=== PATIENT | female | born 1950 | race Caucasian/White ===

== ENCOUNTER 2016-06-22 10:03 | Inpatient (IN) | payer OTHER ==
[2016-06-22] VITALS (17 sets, daily range): BP systolic 117–169; BP diastolic 54–77; PULSE 42–63; RESP 10–25; Ht 154.9 cm; Wt 72.0 kg
[~2016-06-22] VITALS: Ht 154.9 cm; Wt 72.0 kg
[~2016-06-22 10:03] MED LIST: CEFAZOLIN 2 GM/50 ML (PMX) 50 ML IVPB SCH; ERGO500014 PO; GLIM4TAB PO; LOSARTAN PO; LOVA20TA PO; METF1000 PO; OMEP20CA16 PO; SUCCINYLCHOLINE CHLORIDE 100 MG/5 ML SYG IV ONE
[2016-06-22] MEDS ORDERED: GLIP5TAB13 PO (11:39)
[2016-06-22] MEDS ORDERED: FENTAnyl 50 MCG/ML VIAL ONE (15:30)
[2016-06-22] MEDS ORDERED: HYDROmorphONE (0.2 MG/ML) 10ML SYG IV PRN ×3 (16:00)
[2016-06-22] MEDS ORDERED: MEPERIDINE 25 MG INJ IV PRN (16:00)
[2016-06-22] MEDS ORDERED: FENTAnyl 50 MCG/ML VIAL IV PRN (16:00)
[2016-06-22] MEDS ORDERED: DIPHENHYDRAMINE 50 MG INJ IV PRN (16:00)
[2016-06-22] MEDS ORDERED: BUPIVACAINE 0.25% (MPF) 30 ML INJ ONE ×2 (16:48)
[2016-06-22] MEDS ORDERED: CEFAZOLIN 1 GM INJ ONE (16:52)
[2016-06-22] MEDS ORDERED: GLYCOPYRROLATE 0.4 MG INJ ONE (16:52)
[2016-06-22] MEDS ORDERED: LIDOCAINE 2% (SDV) 5 ML INJ ONE (16:52)
[2016-06-22] MEDS ORDERED: ROCURONIUM 50 MG INJ ONE (16:52)
[2016-06-22] MEDS ORDERED: PROPOFOL 20 ML ONE (16:52)
[2016-06-22] MEDS ORDERED: NEOSTIGMINE 3 MG/3 ML SYRINGE ONE (16:52)
[2016-06-22] MEDS ORDERED: ONDANSETRON 4 MG INJ ONE (17:10)
[2016-06-22] MEDS: FENTAnyl 50 MCG/ML VIAL IV PRN ×3 (17:20→19:59)
[2016-06-22 17:26] LABS: ADD SCAN DIFF NO
[2016-06-22 17:27] LABS: BASOPHIL # 0.1 10^3/ul (0.0-0.1); BASOPHILS % 0.7 % (0.0-2.0); EOSINOPHILS # 0.4 10^3/ul (0.0-0.5); EOSINOPHILS % 2.8 % (0.0-7.0); HEMATOCRIT 38.6 % (37.0-47.0); HEMOGLOBIN 12.9 g/dl (12.0-16.0); LYMPHOCYTES # 3.3 10^3/ul (0.8-2.9); LYMPHOCYTES % 24.3 % (15.0-51.0); MEAN CORPUSCULAR HEMOGLOBIN 29.9 pg (29.0-33.0); MEAN CORPUSCULAR HGB CONC 33.4 g/dl (32.0-37.0); MEAN CORPUSCULAR VOLUME 89.4 fl (82.0-101.0); MEAN PLATELET VOLUME 10.6 fl (7.4-10.4); MONOCYTE # 0.8 10^3/ul (0.3-0.9); MONOCYTES % 5.6 % (0.0-11.0); NEUTROPHILS % 66.2 % (39.0-77.0); PLATELET COUNT 263 10^3/UL (140-415); RED BLOOD COUNT 4.32 10^6/ul (4.20-5.40); RED CELL DISTRIBUTION WIDTH 12.3 % (11.5-14.5); WHITE BLOOD COUNT 13.7 10^3/ul (4.8-10.8)
[2016-06-22] MEDS ORDERED: morphine 2 MG INJ IV PRN (17:30)
[2016-06-22] MEDS ORDERED: HYDROCODONE/APAP (5/325) TAB PO PRN (17:30)
[2016-06-22] MEDS ORDERED: CEFAZOLIN 2 GM/50 ML (PMX) 50 ML IVPB SCH (17:30)
[2016-06-22] MEDS ORDERED: ONDANSETRON 4 MG INJ IV PRN (17:30)
[2016-06-22 17:42] LABS: ALBUMIN 3.5 g/dl (3.3-4.9)
[2016-06-22 17:44] LABS: BILIRUBIN,INDIRECT 0.3 mg/dl (0-1.1); BILIRUBIN,TOTAL 0.3 mg/dl (0.2-1.3)
[2016-06-22 17:45] LABS: ALBUMIN/GLOBULIN RATIO 0.94; TOTAL PROTEIN 7.2 g/dl (6.1-8.1)
[2016-06-22 17:58] LABS: CALCIUM 11.2 mg/dl (8.4-10.2); CREATININE 0.61 mg/dl (0.44-1.00)
[2016-06-22] MEDS: LACTATED RINGER'S 1,000 ML IV SCH (19:17)
[2016-06-22] MEDS: SOD CHLORIDE 0.9% 1,000 ML IV SCH ×2 (19:20→20:01)
--- NOTE | 2016-06-22 20:41 | OPR ---
DATE OF OPERATION: 06/22/2016 INDICATION: This is a 65-year-old female with multinodular thyroid goiter. She has problems and di fficulty with breathing and swallowing and requests surgical excision of her thyroid. Risks, altern atives, benefits, and personnel were discussed with the patient. The patient expresses understandin g and consents to the operation. PREOPERATIVE DIAGNOSIS: Multinodular thyroid goiter with pressure symptoms. POSTOPERATIVE DIAGNOSIS: Multinodular thyroid goiter with pressure symptoms. OPERATION: Total thyroidectomy. SURGEON: Bandar Washington MD SPECIMEN: Total thyroid with surgical markings of short single is right superior, single long is th e right inferior, double short is left superior, double long is left inferior. COMPLICATIONS: None. ANESTHESIA: General. PROCEDURE: The patient was taken to the OR and prepped and draped in the usual sterile fashion. Joaquin rgical timeout was performed. IV antibiotics were given. Collar incision was made with a 15 blade. Dissection cautery was carried down to the platysma. Superior and inferior subplatysmal flaps wer e created. Felix retractor was placed. Midline was split with cautery and tonsil. Attention was paid to the right thyroid. It appears somewhat soft. The left thyroid was addressed initially. T he middle thyroidal vein was ligated with the handheld LigaSure. The superior and inferior poles we re mobilized. Attention was paid to the recurrent laryngeal nerve and kept out of harm's way. The thyroid was medialized. The isthmus was mobilized with blunt dissection. Attention was then paid t o the right thyroid. The middle thyroidal vein was ligated with handheld LigaSure. The superior an d inferior poles were mobilized. Attention was paid to keep the recurrent laryngeal nerve out of ross rm's way. Handheld LigaSure was used to dissect carefully around the capsule of the thyroid. The t hyroid was removed en bloc. The short single suture was used to yenni the right superior lobe, singl e long was used to yenni the right inferior lobe, double short was used to yenni the left superior lob e, double long was used to yenni the left anterior lobe. The surgical site was irrigated with irriga tion and Valsalva at 40 cm, this held. There was no evidence of any bleeding. The irrigation was s uctioned out and dried. The midline strap muscles were reapproximated with interrupted 3-0 Vicryl. The platysma muscles were reapproximated with interrupted 3-0 Vicryl. Skin was closed with a runni ng 4-0 Monocryl. Local anesthesia was injected. Dry dressings were applied. Dictated By: BANDAR JOHNSTON/DEAN Conf#: [id number] DID#: [id number]
[2016-06-22] MEDS ORDERED: GLUCAGON 1 MG INJ IM PRN (23:30)
[2016-06-22] MEDS ORDERED: DEXTROSE 50% 50 ML SYRINGE IV PRN ×2 (23:30)
[2016-06-22] MEDS ORDERED: GLUCOSE GEL 15 GRAM TUBE PO PRN ×2 (23:30)
[2016-06-22] MEDS ORDERED: GLUCOSE GEL 15 GRAM TUBE BUCCAL PRN (23:30)
[2016-06-23] MEDS: CEFAZOLIN 2 GM/50 ML (PMX) 50 ML IVPB SCH ×3 (01:14→18:02)
[2016-06-23] MEDS ORDERED: ACCU-CHEK XX SCH (02:00)
[2016-06-23] MEDS: LACTATED RINGER'S 1,000 ML IV SCH ×3 (03:10→13:10)
[2016-06-23 05:36] LABS: ADD SCAN DIFF NO
[2016-06-23 05:55] LABS: ALBUMIN 3.3 g/dl (3.3-4.9); POTASSIUM 4.4 mmol/L (3.5-5.1)
[2016-06-23 05:57] LABS: CREATININE 0.61 mg/dl (0.44-1.00)
[2016-06-23 05:58] LABS: ALBUMIN/GLOBULIN RATIO 0.97; BILIRUBIN,INDIRECT 0.5 mg/dl (0-1.1); BILIRUBIN,TOTAL 0.5 mg/dl (0.2-1.3); CALCIUM 10.8 mg/dl (8.4-10.2); TOTAL PROTEIN 6.7 g/dl (6.1-8.1)
[2016-06-23 06:17] LABS: BASOPHIL # 0.1 10^3/ul (0.0-0.1); BASOPHILS % 0.7 % (0.0-2.0); EOSINOPHILS # 0.2 10^3/ul (0.0-0.5); EOSINOPHILS % 1.5 % (0.0-7.0); HEMATOCRIT 38.5 % (37.0-47.0); LYMPHOCYTES # 2.8 10^3/ul (0.8-2.9); LYMPHOCYTES % 22.8 % (15.0-51.0); MEAN CORPUSCULAR HEMOGLOBIN 30.2 pg (29.0-33.0); MEAN CORPUSCULAR HGB CONC 33.8 g/dl (32.0-37.0); MEAN CORPUSCULAR VOLUME 89.5 fl (82.0-101.0); MEAN PLATELET VOLUME 11.1 fl (7.4-10.4); MONOCYTE # 0.9 10^3/ul (0.3-0.9); MONOCYTES % 7.2 % (0.0-11.0); NEUTROPHIL # 8.2 10^3/ul (1.6-7.5); NEUTROPHILS % 67.5 % (39.0-77.0); PLATELET COUNT 263 10^3/UL (140-415); RED CELL DISTRIBUTION WIDTH 12.5 % (11.5-14.5); WHITE BLOOD COUNT 12.2 10^3/ul (4.8-10.8)
[2016-06-23] MEDS: INSULIN ASPART [NOVOLOG] 3 ML PEN SC SCH ×3 (08:15→17:47)
[2016-06-23 08:29] VITALS: BP 151/65; RESP 17
[2016-06-23] MEDS: SOD CHLORIDE 0.9% 1,000 ML IV SCH (08:40)
[2016-06-23] MEDS ORDERED: LOSARTAN 50 MG TAB PO SCH (11:30)
--- NOTE | 2016-06-23 11:41 | HP ---
DATE OF ADMISSION: 06/22/2016 HISTORY OF PRESENT ILLNESS: The patient is a 66-year-old female with hypertension, diabetes, hyperp arathyroidism. The patient presented with multinodular thyroid goiter and had difficulty with swall owing. The patient was evaluated by Dr. Washington in surgical consultation and was brought to the [facility] and underwent a total thyroidectomy for multilobular thyroid goiter with pressure symptoms. Posto peratively, the patient experienced significant pain and was admitted for further evaluation and man agement. PAST MEDICAL HISTORY: Positive for hypertension, diabetes, hyperparathyroidism. PAST SURGICAL HISTORY: Status post breast cyst removal in 1991, left meniscus repair in and C -section x2 many years ago. FAMILY HISTORY: Noncontributory. SOCIAL HISTORY: The patient lives at home with her family. The patient denies any tobacco use, den ies any alcohol use, denies any illicit drug use. ALLERGIES: NO KNOWN ALLERGIES. MEDICATIONS ON ADMISSION: 1. Tylenol p.r.n. for pain. 2. Glipizide 10 mg. 3. Cozaar 4. Lovastatin. 5. Metformin. 6. Naproxen. REVIEW OF SYSTEMS: A 12-point review of systems is negative unless what mentioned in the HPI. PHYSICAL EXAMINATION: GENERAL: Well-developed, well-nourished female, currently is awake, alert. VITAL SIGNS: Temperature is 98.3, pulse 62, blood pressure 151/65, respiratory rate 17, oxygen satu ration 97% on room air. HEENT: Head is atraumatic, normocephalic. Pupils equal, round, reactive to light and accommodation . Oral mucosa is pink and moist. NECK: Supple. There is a surgical incision at the base of the neck, it is intact. CHEST: Lungs clear bilaterally. There is no rhonchi, wheezes, rales noted. CARDIOVASCULAR: Normal S1, S2. No murmurs, gallops, clicks, rubs noted. ABDOMEN: Round, soft, nondistended, nontender. Bowel sounds present. There is no guarding or rebo und tenderness. EXTREMITIES: There is no edema, clubbing, cyanosis. Pulses equal bilaterally 2+. SKIN: There is no rash, petechiae noted. NEUROLOGIC: The patient is awake, alert and oriented x4, no focal deficits noted. Motor strength 5 /5 in all extremities. LABORATORY DATA: On admission, CBC: White blood cells 13.7, hemoglobin 12.9, hematocrit 38.6, plat elets 263. Chemistry: Sodium is 140, potassium 4.0, chloride 108, carbon dioxide 25, anion gap 11, BUN 17, creatinine 0.61, glucose 152, calcium 11.2. AST is 18, ALT 29, alkaline platelets 160. ASSESSMENT AND PLAN 1. Multinodular thyroid goiter with pressure symptoms, status post total thyroidectomy. We are goi ng to admit patient to medical/surgical floor. Continue postoperative antibiotics, Tylenol and Morp sangeeta p.r.n. for pain. Monitor calcium level. 2. Diabetes mellitus. Continue to monitor sugar with NovoLog sliding scale coverage. 3. Hypertension. We will resume patient's antihypertensive medication. 4. Dyslipidemia. Continue statin. 5. We will continue sequential compression devices for deep venous thrombosis prophylaxis. Further recommendations based on clinical course. Plan of care discussed with Dr. Worthington. Dictated By: JOSIAH SEGURA TRAFFIC CHECKER for BIANCA WORTHINGTON MD SR/NTS Conf#: [id number] DID#: [id number]
--- NOTE | 2016-06-23 16:20 | PN ---
Date/Time of Note Date/Time of Note DATE: 06/23/16 TIME: 16:20 Assessment/Plan VTE Prophylaxis VTE Prophylaxis Intervention: SCD's Lines/Catheters IV Catheter Type (from [facility]): Peripheral IV Urinary Cath still in place: No Assessment/Plan Chief Complaint/Hosp Course s/p total thyroidectomy Problems: Assessment/Plan dc home Subjective 24 Hr Interval Summary Free Text/Dictation doing well, no voice changes, Exam/Review of Systems Vital Signs Vitals Vital Signs Date Time Temp Pulse Resp B/P Pulse Ox O2 Delivery O2 Flow Rate FiO2 06/23/16 08:29 98.6 62 17 151/65 97 06/22/16 18:55 Nasal Cannula 06/22/16 18:09 2.0 Intake and Output 06/22/16 06/22/16 06/23/16 15:00 23:00 07:00 Intake Total 1100 ml 1050 ml Output Total 5 ml Balance 1095 ml 1050 ml Exam c/d/i Results Result Diagram: 06/23/16 0509 06/23/16 0509 Results 24 hrs Laboratory Tests Test 06/22/16 17:20 06/22/16 17:33 06/22/16 23:11 06/23/16 05:09 White Blood Count 13.7 H 12.2 H Red Blood Count 4.32 4.30 Hemoglobin 12.9 13.0 Hematocrit 38.6 38.5 Mean Corpuscular Volume 89.4 89.5 Mean Corpuscular Hemoglobin 29.9 30.2 Mean Corpuscular Hemoglobin Concent 33.4 33.8 Red Cell Distribution Width 12.3 12.5 Platelet Count 263 263 Mean Platelet Volume 10.6 H 11.1 H Neutrophils % 66.2 67.5 Lymphocytes % 24.3 22.8 Monocytes % 5.6 7.2 Eosinophils % 2.8 1.5 Basophils % 0.7 0.7 Nucleated Red Blood Cells % 0.0 0.0 Neutrophils # 9.0 H 8.2 H Lymphocytes # 3.3 H 2.8 Monocytes # 0.8 0.9 Eosinophils # 0.4 0.2 Basophils # 0.1 0.1 Nucleated Red Blood Cells # 0.0 0.0 Sodium Level 140 139 Potassium Level 4.0 4.4 Chloride Level 108 106 Carbon Dioxide Level 25 26 Anion Gap 11 11 Blood Urea Nitrogen 17 13 Creatinine 0.61 0.61 Glucose Level 152 110 # Calcium Level 11.2 H 10.8 H Total Bilirubin 0.3 0.5 Direct Bilirubin 0.00 0.00 Indirect Bilirubin 0.3 0.5 Aspartate Amino Transf (AST/SGOT) 18 21 Alanine Aminotransferase (ALT/SGPT) 29 27 Alkaline Phosphatase 160 H 144 H Total Protein 7.2 6.7 Albumin 3.5 3.3 Globulin 3.70 H 3.40 H Albumin/Globulin Ratio 0.94 0.97 Bedside Glucose 134 148 Test 06/23/16 07:53 06/23/16 11:55 Bedside Glucose 112 150 Medications Medications Current Medications Morphine Sulfate (morphine) 2 mg Q2H PRN IV PAIN LEVEL 6-10; Start 06/22/16 at 17:30 Acetaminophen/ Hydrocodone Bitart 1 tab 1 tab Q6H PRN PO PAIN LEVEL 6-10; Start 06/22/16 at 17:30 Lactated Ringer's 1,000 ml @ 100 mls/hr Q10H IV Last administered on 05:35; Admin Dose 100 MLS/HR; Start 06/22/16 at 17:10 Cefazolin Sodium/ Dextrose (Ancef 2 Gm/50 ml (Pmx)) 50 ml @ 100 mls/hr Q8H IVPB Last administered on 06/23/16 10:05; Admin Dose 100 MLS/HR; Start at 01:30; Stop 06/23/16 at 17:59 Diagnostic Test (Pha) (Accu-Chek) 1 ea 02 XX ; Start 06/23/16 at 02:00 Miscellaneous Information 1 ea NOTE XX ; Start 06/22/16 at 23:30 Glucose (Glutose) 15 gm Q15M PRN PO DECREASED GLUCOSE; Start 06/22/16 at 23:30 Glucose (Glutose) 22.5 gm Q15M PRN PO DECREASED GLUCOSE; Start 06/22/16 at 23: 30 Dextrose (D50w Syringe) 25 ml Q15M PRN IV DECREASED GLUCOSE; Start 06/22/16 at 23:30 Dextrose (D50w Syringe) 50 ml Q15M PRN IV DECREASED GLUCOSE; Start 06/22/16 at 23:30 Glucagon (Glucagen) 1 mg Q15M PRN IM DECREASED GLUCOSE; Start 06/22/16 at 23:30 Glucose (Glutose) 15 gm Q15M PRN BUCCAL DECREASED GLUCOSE; Start 06/22/16 at 23 :30 Glipizide (Glucotrol) 5 mg DAILY PO ; Start 06/24/16 at 09:00 Atorvastatin Calcium (Lipitor) 10 mg DAILY@21 PO ; Start 06/23/16 at 21:00 Losartan Potassium (Cozaar) 50 mg DAILY PO Last administered on 06/23/16t 12:47 ; Admin Dose 50 MG; Start 06/23/16 at 11:30 Lenny PRAKASH Jun 23, 2016 16:20
[2016-06-23] MEDS ORDERED: HYDR-3498 PO (16:54)
[2016-06-23] MEDS ORDERED: metFORMIN 500 MG TAB PO SCH (18:00)
[2016-06-23] MEDS ORDERED: ATORVASTATIN 10 MG TAB PO SCH (21:00)
[2016-06-24] MEDS ORDERED: glipiZIDE 5 MG TAB PO SCH (09:00)
== END 2016-06-23 19:50 | disposition home or self-care (01) | DRG 627 ==
LOC: REC 10:03 → EDSTATUS 12:00 → MS2 18:25
PROVIDERS: ADMIT Internal Medicine; ATTEND Surgery
PROC: 0GTK0ZZ Resection of Thyroid Gland, Open Approach (ICD-10-PCS; principal; 2016-06-22 13:00)
DX: E04.2 Nontoxic multinodular goiter (principal); I10 Essential (primary) hypertension; E11.9 Type 2 diabetes mellitus without complications; E78.5 Hyperlipidemia, unspecified
CPT/HCPCS: 80053; 82962; 85025; 88307; J0330; J0690; J1815; J2405; J2710; J3010; J7030; J7120

== ENCOUNTER 2016-06-26 13:52 | Outpatient (CLI) | payer OTHER ==
[~2016-06-26] VITALS: Ht 154.9 cm; Wt 72.0 kg
[~2016-06-26 13:52] MED LIST changes: -CEFAZOLIN 2 GM/50 ML (PMX) 50 ML IVPB SCH; -GLIM4TAB PO; +GLIP5TAB13 PO; +HYDR-3498 PO; -OMEP20CA16 PO; -SUCCINYLCHOLINE CHLORIDE 100 MG/5 ML SYG IV ONE
[2016-06-26 14:47] VITALS: BP 133/68; PULSE 55; RESP 17; Ht 154.9 cm; Wt 72.0 kg
--- NOTE | 2016-06-26 14:56 | PN ---
Date/Time of Note Date/Time of Note DATE: 06/26/16 TIME: 14:50 Outpatient Progress Note Chief Complaint Hypertension/diabetes/hyperparathyroidism/multinodular thyroid goiter/ hyperlipidemia HPI Hypertension/no headache or dizziness, no lightheadedness, no local focal weakness, on medication, Diabetes/no polydipsia polyuria hypoglycemia, gastroparesis, no rash, no impaired vision, Hyperparathyroidism/patient has hyperparathyroidism, patient had surgery, patient doing better, will clean, Multinodular thyroid goiter/patient has multinodular thyroid goiter, patient had surgery, patient surgical wound clean, no fever chills, Hyperlipidemia/no xanthoma, on medication, no side effect of medication, Review of Systems Const: No Fever, no chills, no Wt. loss, no Fatigue, normal appetite, no diaphoresis. Eyes: No pain, no discharge, no redness, no visual change, no foreign body. ENT: No pain, no bleeding, no congestion, no sore throat, no dysphagia, no discharge or rhinitis slight neck discomfort,. Lymph: No adenopathy, no tender nodes, no lymphedema. Resp: No SOB, no cough, no sputum, no wheezing, no chest pain. CV: No chest pain, no palpitaions, no GUERRERO, no PND, no edema. GI: Normal appetite, no pain, no nausea, no vomiting, no diarrhea, no blood, no constipation. : No frequency, no urgency, no dysuria, no hematuria, no flank pain, no discharge, no bleeding. Musc: No bone/joint pain, no back pain, no neck pain, no knee pain, no restricted ROM. Skin: No rash, no skin lesions, no erythema, no laceration, no bruising, no pruritus. Neuro: No GARCIA, no dizziness, no syncope, no seizure, no focal-weakness. Endo: No polyuria, no polydypsia, no dry-skin, no temp-intolerance. Psych: No hallucinations, no depression, no anxiety, no suicidal ideation. Ext: No edema, no pain, no ulcer, no weakness. Physical Exam Vital Signs Date Time Temp Pulse Resp B/P Pulse Ox O2 Delivery O2 Flow Rate FiO2 06/26/16 14:47 98.2 55 17 133/68 95 Room Air General Appearance: A [66 year-old female who appears well-developed, well- nourished, in no acute distress. HEENT: Head normocephalic, atraumatic. Pupils equal, round, reactive to light and accommodate. Sclerae are no jaundice. Nasal turbinates pink without erythema or nasal discharge. Mucous membranes pink and moist without lesions. Oropharynx clear without any exudate or discharge. NECK: Supple. Trachea midline surgical scar in the neck, no bleeding no discharge no redness,, status post thyroidectomy,, no cervical lymphadenopathy, No mass, No carotid bruits, No JVD, Carotid pulses 2+ bilaterally. PULMONARY: Clear to auscultaion bilaterally, No retractions, Chest expansion symmetric bilaterally, no rales, no ronchi, no dulness on percussion. CARDIAC: Normal SI and S2, Regular rate and rythm, no murmur, gallop, or rub. GASTROINTESTINAL: Abdomen is soft, non-tender, Non Rigid, No distention, Positive bowel sounds x4 quadrants, Liver normal. SKIN: Warm, dry, no rash, no bruise, no echmosis. EXTREMITIES: Bilateral lower extremities normal, no edema, no phlabitus, pulse palpable, no contracture. MUSCULOSKELETAL: Spine Normal, Non-tender, Normal range of motion, No swelling, no deformity, no clubbing, or cyanosis, the patient has no edema to bilateral lower extremities, dorsalis pedis pulses palpable bilaterally. NEUROLOGIC: The patient is awake, alert, oriented, responding to yes/no questions appropriately, moving all extremities, cranial nerve intact, normal strenght, normal power, normal coordination, normal gait. Allergies Coded Allergies: No Known Allergy (Unverified , 07/11/15) PMH Hypertension/diabetes/thyroid nodule/hyperparathyroidism/hyperlipidemia Status post thyroidectomy, Social Hx No smoking no drinking no drugs, Family Hx Noncontributory Assessment/Plan Impression Hypertension/diabetes/hyperparathyroidism/multinodular goiter/hyperlipidemia/ status post thyroidectomy Plan Patient has recently thyroidectomy, patient doing better, no pain, no discharge , no redness, Patient has no blood sugar machine or supply, patient has not checked blood sugar in 2 years, Patient advised to check blood sugar as described, before meals at bedtime, and bring the report, We will monitor surgical scar, Patient will need CBC CMP next time, discussed with the patient, Accu-Chek machine with 1 month supply, and patient to bring blood sugar report, Patient education done about diabetes hypertension and surgery, and patient to follow with the surgery also, and primary care physician, If any problem to go to the ER or call us, or call primary care physician, Medications Home Meds Active Scripts Hydrocodone Bit-Acetaminophen (Hydrocodone Bit-APAP) 5-325MG Tablet, 1 TAB PO Q6H Y for PAIN LEVEL 6-10, #20 TAB Prov:JOSIAH SEGURA 06/23/16 Reported Medications Glipizide* (Glipizide*) 5 Mg Tablet, 5 MG PO DAILY, TAB 06/22/16 Metformin Hcl* (Metformin Hcl*) 1,000 Mg Tablet, 250 MG PO WITH BREAKFAST DINNE , #60 TAB 07/11/15 Ergocalciferol* (Drisdol* (Vitamin D2)) 50,000 Unit Capsule, 77098 UNIT PO Q7D, CAP 07/11/15 Lovastatin* (Lovastatin*) 20 Mg Tablet, 40 MG PO HS, TAB 07/11/15 [Losartan] 50 No Conflict Check, 50 MG PO DAILY 07/11/15 Discontinued Reported Medications Glimepiride* (Glimepiride*) 4 Mg Tablet, 4 MG PO WITH BREAKFAST, TAB 07/11/15 Omeprazole* (Omeprazole*) 20 Mg Capsule., 20 MG PO DAILY, #30 CAP 07/11/15 KAYLIN BARROSO MD Jun 26, 2016 14:56
== END 2016-06-26 16:05 | disposition home or self-care (01) ==
LOC: DCC 13:52
PROVIDERS: ATTEND Internal Medicine
DX: Z48.89 Encounter for other specified surgical aftercare (principal); I10 Essential (primary) hypertension; E78.5 Hyperlipidemia, unspecified; E11.9 Type 2 diabetes mellitus without complications; Z79.84 Long term (current) use of oral hypoglycemic drugs

== ENCOUNTER 2016-07-10 11:14 | Outpatient (CLI) | payer OTHER ==
[~2016-07-10] VITALS: Ht 154.9 cm; Wt 74.5 kg
[2016-07-10 11:21] VITALS: BP 132/64; PULSE 62; RESP 16; Ht 154.9 cm; Wt 74.5 kg
--- NOTE | 2016-07-10 11:50 | PN ---
Date/Time of Note Date/Time of Note DATE: 07/10/16 TIME: 11:44 Outpatient Progress Note Chief Complaint Thyroid cancer/diabetes/hypertension/hyperlipidemia HPI Thyroid cancer/patient had thyroidectomy, patient's margins are clear, surgical scar clean, no fever chill, no pain, Diabetes/no pleuritic supple due to hypoglycemia, Hypertension/headache or dizziness, no local focal weakness, Hyperlipidemia/no xanthoma, on medication, side effect, Swelling/patient is swelling on the left side of the shoulder, painless, not increased in size recently, Review of Systems const: No Fever, no chills, no Wt. loss, no Fatigue, normal appetite, no diaphoresis. Eyes: No pain, no discharge, no redness, no visual change, no foreign body. ENT: No pain, surgical scar clean, status post thyroidectomy, no bleeding, no congestion, no sore throat, no dysphagia, no discharge or rhinitis. Lymph: No adenopathy, no tender nodes, no lymphedema. Resp: No SOB, no cough, no sputum, no wheezing, no chest pain. CV: No chest pain, no palpitaions, no GUERRERO, no PND, no edema. GI: Normal appetite, no pain, no nausea, no vomiting, no diarrhea, no blood, no constipation. : No frequency, no urgency, no dysuria, no hematuria, no flank pain, no discharge, no bleeding. Musc: No bone/joint pain, no back pain, no neck pain, no knee pain, no restricted ROM patient has a huge swelling on the left side of the shoulder, no pain, soft, no tenderness,. Skin: No rash, no skin lesions, no erythema, no laceration, no bruising, no pruritus. Neuro: No GARCIA, no dizziness, no syncope, no seizure, no focal-weakness. Endo: No polyuria, no polydypsia, no dry-skin, no temp-intolerance. Psych: No hallucinations, no depression, no anxiety, no suicidal ideation. Ext: No edema, no pain, no ulcer, no weakness. Physical Exam Vital Signs Date Time Temp Pulse Resp B/P Pulse Ox O2 Delivery O2 Flow Rate FiO2 07/10/16 11:21 97.9 62 16 132/64 97 Room Air General Appearance: A 66 year-old female who appears well-developed, well- nourished, in no acute distress. HEENT: Head normocephalic, atraumatic. Pupils equal, round, reactive to light and accommodate. Sclerae are no jaundice. Nasal turbinates pink without erythema or nasal discharge. Mucous membranes pink and moist without lesions. Oropharynx clear without any exudate or discharge. NECK: Supple. Trachea midline, surgical scar clean, status post thyroidectomy, no thyromegaly, No cervical lymphadenopathy, No mass, No carotid bruits, No JVD , Carotid pulses 2+ bilaterally. PULMONARY: Clear to auscultaion bilaterally, No retractions, Chest expansion symmetric bilaterally, no rales, no ronchi, no dulness on percussion. CARDIAC: Normal SI and S2, Regular rate and rythm, no murmur, gallop, or rub. GASTROINTESTINAL: Abdomen is soft, non-tender, Non Rigid, No distention, Positive bowel sounds x4 quadrants, Liver normal. SKIN: Warm, dry, no rash, no bruise, no echmosis. EXTREMITIES: Bilateral lower extremities normal, no edema, no phlabitus, pulse palpable, no contracture. MUSCULOSKELETAL: Spine Normal, Non-tender, Normal range of motion, patient has swelling on the back of left shoulder, 6 x 7 cm, soft, nontender, no discharge, no redness,, no deformity, no clubbing, or cyanosis, the patient has no edema to bilateral lower extremities, dorsalis pedis pulses palpable bilaterally. NEUROLOGIC: The patient is awake, alert, oriented, responding to yes/no questions appropriately, moving all extremities, cranial nerve intact, normal strenght, normal power, normal coordination, normal gait. Allergies Coded Allergies: No Known Allergy (Unverified , 07/11/15) PMH No change Social Hx No change Family Hx Impression Thyroid cancer/status post thyroidectomy/diabetes/hypertension/hyperlipidemia Plan Patient education done, control of blood sugar control the blood pressure, complication explained, Patient had recent thyroidectomy, patient did not bring all medication, does not remember whether she is taking thyroid medication or not, patient supposed to call or bring all medication, patient may need TSH, discussed with patient, may need workup with the primary care physician, Patient encouraged to follow with the primary care physician, Patient has lipoma on back off patient right shoulder, surgical removal will try to get authorization to see a surgeon, or will see if primary care physician has already applied,, Medications Home Meds Reported Medications Glipizide* (Glipizide*) 5 Mg Tablet, 5 MG PO DAILY, TAB 06/22/16 Metformin Hcl* (Metformin Hcl*) 1,000 Mg Tablet, 250 MG PO WITH BREAKFAST DINNE , #60 TAB 07/11/15 Ergocalciferol* (Drisdol* (Vitamin D2)) 50,000 Unit Capsule, 69095 UNIT PO Q7D, CAP 07/11/15 Lovastatin* (Lovastatin*) 20 Mg Tablet, 40 MG PO HS, TAB 07/11/15 [Losartan] 50 No Conflict Check, 50 MG PO DAILY 07/11/15 Discontinued Scripts Hydrocodone Bit-Acetaminophen (Hydrocodone Bit-APAP) 5-325MG Tablet, 1 TAB PO Q6H Y for PAIN LEVEL 6-10, #20 TAB Prov:JOSIAH SEGURA 06/23/16 KAYLIN BARROSO MD July 10, 2016 11:50
== END 2016-07-10 16:49 | disposition home or self-care (01) ==
LOC: DCC 11:14
PROVIDERS: ATTEND Internal Medicine
DX: C73 Malignant neoplasm of thyroid gland (principal); E11.9 Type 2 diabetes mellitus without complications; I10 Essential (primary) hypertension; E78.5 Hyperlipidemia, unspecified; Z79.84 Long term (current) use of oral hypoglycemic drugs